=== PATIENT | female | born 1965 | race Caucasian/White ===

== ENCOUNTER 2016-12-07 20:55 | Emergency (ER) | payer BC ==
[2016-12-07] MEDS ORDERED: Al Hydrox/Mg Hydrox/Simet LIQ* 30 ML UDC PO ONE (21:26)
[2016-12-07] MEDS ORDERED: Famotidine IV* 10 MG/ML 2 ML (20 mg) IV SLOW PU ONE (21:26)
[2016-12-07 21:33] LABS: Hematocrit 41 % (35-47); Mean Corpuscular HGB Conc 34 g/dl (31-36); Mean Corpuscular Hemoglobin 32 pg (27-31); Mean Corpuscular Volume 93 fL (80-97); Mean Platelet Volume 8 um3 (7.4-10.4); Red Blood Count 4.36 10^6/ul (4.0-5.4); Red Cell Distribution Width 13 % (10.5-15); White Blood Count 7.1 10^3/ul (3.5-10.8)
[2016-12-07 21:44] LABS: Albumin 4.6 g/dL (3.2-5.2); BUN/Creatinine Ratio 19.3 (8-20); EGFR African American 87.1 (>60); EGFR Non-African American 67.7 (>60); Globulin 2.9 g/dL (2-4); Total Bilirubin 1.1 mg/dL (0.2-1.0); Total Protein 7.5 g/dL (6.4-8.9)
[2016-12-07 21:51] LABS: Potassium 3.1 mmol/L (3.5-5.0)
[2016-12-07 22:05] LABS: Urine Bilirubin Negative (Negative); Urine Glucose Negative (Negative); Urine Nitrite Negative (Negative)
[2016-12-07] MEDS ORDERED: NS 0.9% 1000 ML* 1,000 ML IV ONE (23:10)
[2016-12-07] MEDS ORDERED: Morphine INJ* 4 MG/ML 1 ML CARPUJECT IV ONE (23:10)
[2016-12-08 01:37] VITALS: BP 103/64
--- NOTE | 2016-12-08 07:45 | RAD ---
HISTORY: 4 hours of epigastric pain COMPARISONS: CT abdomen pelvis September 15, 2013 TECHNIQUE: Multiple transverse and longitudinal ultrasound images were obtained of the right upper quadrant. FINDINGS: LIVER: The liver is normal in dimensions and echogenicity. Normal hepatic and portal venous blood flow is duplicated with color flow imaging. There is a appearance of mild intrahepatic biliary duct dilatation.. GALLBLADDER AND EXTRAHEPATIC BILIARY DUCT: There are several echogenic shadowing gallstones in the gallbladder lumen. There is no pericholecystic fluid or gallbladder wall thickening. The common bile duct measures a maximum diameter of 4 mm. PANCREAS: The portions of the pancreas not obscured by bowel gas are normal in appearance. RIGHT KIDNEY: The right kidney is normal in size, morphology and echogenicity. AORTA AND IVC: The visualized portions are normal in appearance and not pathologically dilated. IMPRESSION: 1. CHOLELITHIASIS WITHOUT DEFINITE SIGNS OF BILIARY OBSTRUCTION OR ACUTE INFLAMMATORY CHANGE. 2. QUESTIONABLE MILD DILATATION OF THE INTRAHEPATIC BILIARY DUCTS. PLEASE CORRELATE TO LFTS.
--- NOTE | 2016-12-08 22:11 | ED ---
Ajit Sahni Angela, scribed for Katia Ann MD on 12/07/16 at 2312 . Abdominal Pain/Female - HPI Summary HPI Summary: This pt is a 51 y/o female presenting to [facility] c/o epigastric abd pain that began today after dinner. She states her pain radiates to her back. Pt reports she had a headache yesterday, not today. She notes currently having chills. Pt denies fever, blurry vision, chest pain, SOB, dysuria, hematuria, rashes. Pt is currently being treated for anxiety. PMHx: breast CA (on remission). Pt still has her gallbladder. - History of Current Complaint Chief Complaint: EDAbdPain Stated Complaint: ABD PAIN Time Seen by Provider: 12/07/16 21:19 Hx Obtained From: Patient, Family/Grader Marker - Onset/Duration: Lasting Hours Timing: Hours Pain Intensity: 8 Pain Scale Used: 0-10 Numeric Radiates: Yes Radiates to: Back Aggravating Factor(s): Nothing Alleviating Factor(s): Nothing Associated Signs and Symptoms: Positive: Back Pain. Negative: Fever, Chest Pain , Blood in Stool, Urinary Symptoms, Nausea, Vomiting, Diarrhea Allergies/Adverse Reactions: Allergies Allergy/AdvReac Type Severity Reaction Status Date / Time ENVIRONMENTAL Allergy GI, RASH Uncoded 12/07/16 21:08 PMH/Surg Hx/FS Hx/Imm Hx Endocrine/Hematology History: Denies: Hx Diabetes Cardiovascular History: Denies: Hx Congestive Heart Failure, Hx Hypertension, Other Cardiovascular Problems/Disorders Respiratory History: Denies: Other Respiratory Problems/Disorders History: Reports: Other Problems/Disorders - stress incontinence Musculoskeletal History: Reports: Hx Arthritis - SPINE Denies: Hx Osteoporosis, Other Musculoskeletal History Sensory History: Reports: Hx Hearing Aid - LEFT EAR IMPLANT Neurological History: Denies: Other Neuro Impairments/Disorders Psychiatric History: Reports: Hx Anxiety - ON MEDS - Cancer History Cancer Type, Location and Year: Breast CA Hx Chemotherapy: Yes Hx Radiation Therapy: Yes - Surgical History Surgery Procedure, Year, and Place: stapadectomy in left ear-2012 [place], 2013 Mastectomy August 19, [facility]. LEFT BREAST LIFT Hx Anesthesia Reactions: No Infectious Disease History: No Infectious Disease History: Denies: Traveled Outside the [place] in Last 30 Days - Family History Known Family History: Positive: Cardiac Disease - father, Diabetes - father, Other - Mother: breast CA - Social History Alcohol Use: Weekly Alcohol Amount: 3-4 PER WEEK Substance Use Type: Reports: None Smoking Status (MU): Never Smoked Tobacco Have You Smoked in the Last Year: No Review of Systems Positive: Chills. Negative: Fever Eyes: Negative Negative: Chest Pain Negative: Shortness Of Breath Positive: Abdominal Pain. Negative: Vomiting, Diarrhea, Nausea Negative: dysuria, frequency, hematuria, urgency, other - bloody stools Positive: Other - back pain Skin: Negative Positive: Headache - now resolved All Other Systems Reviewed And Are Negative: Yes Physical Exam Triage Information Reviewed: Yes Vital Signs On Initial Exam: Initial Vitals Temp Pulse Resp BP Pulse Ox 98.2 F 83 16 144/88 100 12/07/16 21:05 12/07/16 21:05 12/07/16 21:05 12/07/16 21:05 12/07/16 21:05 Vital Signs Reviewed: Yes Appearance: Positive: Well-Nourished Skin: Positive: Warm, Skin Color Reflects Adequate Perfusion, Dry Head/Face: Positive: Normal Head/Face Inspection Eyes: Positive: Normal ENT: Positive: Normal ENT inspection Neck: Positive: Supple, Nontender Respiratory/Lung Sounds: Positive: Clear to Auscultation, Breath Sounds Present Cardiovascular: Positive: Normal, RRR Abdomen Description: Positive: Soft, Other: - epigastric tenderness. Negative: CVA Tenderness (R), CVA Tenderness (L) Musculoskeletal: Positive: Normal, Other - no LE swellin. Negative: Edema Left , Edema Right Neurological: Positive: Normal, Sensory/Motor Intact, Alert, Oriented to Person Place, Time Psychiatric: Positive: Normal Diagnostics - Vital Signs Vital Signs Temp Pulse Resp BP Pulse Ox 12/07/16 22:30 81 19 131/72 98 12/07/16 22:29 80 26 139/75 97 12/07/16 22:00 74 15 125/86 99 12/07/16 21:30 78 19 122/78 100 12/07/16 21:22 83 20 128/76 100 12/07/16 21:20 85 20 100 12/07/16 21:05 98.2 F 83 16 144/88 100 - Laboratory Lab Results: Lab Results 12/07/16 12/07/16 12/07/16 Range/Units 21:15 21:15 21:55 WBC 7.1 (3.5-10.8) 10^3/ul RBC 4.36 (4.0-5.4) 10^6/ul Hgb 14.0 (12.0-16.0) g/dl Hct 41 (35-47) % MCV 93 (80-97) fL MCH 32 H (27-31) pg MCHC 34 (31-36) g/dl RDW 13 (10.5-15) % Plt Count 222 (150-450) 10^3/ul MPV 8 (7.4-10.4) um3 Neut % (Auto) 70.5 (38-83) % Lymph % (Auto) 21.9 L (25-47) % [place] % (Auto) 6.4 (1-9) % Eos % (Auto) 0.5 (0-6) % Baso % (Auto) 0.7 (0-2) % Absolute Neuts (auto) 5.0 (1.5-7.7) 10^3/ul Absolute Lymphs (auto) 1.6 (1.0-4.8) 10^3/ul Absolute Monos (auto) 0.5 (0-0.8) 10^3/ul Absolute Eos (auto) 0 (0-0.6) 10^3/ul Absolute Basos (auto) 0.1 (0-0.2) 10^3/ul Absolute Nucleated RBC 0 10^3/ul Nucleated RBC % 0 Sodium 137 (133-145) mmol/L Potassium 3.1 L (3.5-5.0) mmol/L Chloride 99 L (101-111) mmol/L Carbon Dioxide 26 (22-32) mmol/L Anion Gap 12 H (2-11) mmol/L BUN 17 (6-24) mg/dL Creatinine 0.88 (0.51-0.95) mg/dL Est GFR ( Amer) 87.1 (>60) Est GFR (Non-Af Amer) 67.7 (>60) BUN/Creatinine Ratio 19.3 (8-20) Glucose 93 (70-100) mg/dL Calcium 10.0 (8.6-10.3) mg/dL Total Bilirubin 1.10 H (0.2-1.0) mg/dL AST 191 H (13-39) U/L ALT 81 H (7-52) U/L Alkaline Phosphatase 110 H (34-104) U/L C-React Prot High Sens 2.83 mg/L Total Protein 7.5 (6.4-8.9) g/dL Albumin 4.6 (3.2-5.2) g/dL Globulin 2.9 (2-4) g/dL Albumin/Globulin Ratio 1.6 (1-3) Urine Color Straw Urine Appearance Clear Urine pH 9.0 (5-9) Ur Specific [place] 1.005 L (1.010-1.030) Urine Protein Negative (Negative) Urine Ketones 1+ H (Negative) Urine Blood Negative (Negative) Urine Nitrate Negative (Negative) Urine Bilirubin Negative (Negative) Urine Urobilinogen Negative (Negative) Ur Leukocyte Esterase Negative (Negative) Urine Glucose Negative (Negative) Result Diagrams: 12/07/16 21:15 12/07/16 21:15 Lab Statement: Any lab studies that have been ordered have been reviewed, and results considered in the medical decision making process. - Ultrasound No standard instances Ultrasound Interpretation: Positive (See Comments) - Gallbladder US IMPRESSION: Gallstones without secondary findings of cholecystitis. Mild intrahepatic biliary duct dilation. Consider followup with CT or MRI. ED physician has reviewed this radiology report and agrees. Ultrasound Interpretation Completed By: Radiologist Re-Evaluation - Re-Evaluation First Eval Re-Evaluation Time: 01:02 Comment: I reviewed the gallbladder US with the pt. Pt deferred a work excuse. Abdominal Pain Fem Course/Dx - Course Course Of Treatment: This pt is a 51 y/o female presenting to [facility] c/o epigastric abd pain that began today after dinner. In the ED course, pt was given maalox, pepcid, IV fluids, and Pepcid. Gallbladder US shows gallstones without secondary findings of cholecystitis. Mild intrahepatic biliary duct dilation. Pt will be discharged and is advised to follow up with a general surgeon. Pt deferred a work note. - Diagnoses Provider Diagnoses: Gallstones Discharge - Discharge Plan Condition: Stable Disposition: HOME Patient Education Materials: Gallstones (ED), Abdominal Pain (ED) Referrals: Ryley Tierney MD [Medical Doctor] - 1 Week (Follow up for your gallstones) Kendrick Yu MD [Primary Care Provider] - Additional Instructions: return if worse or any new symptoms. Take all medications as previously instructed. The documentation as recorded by the Ajit ricks Angela accurately reflects the service I personally performed and the decisions made by , Katia Ann MD.
== END 2016-12-08 01:39 | disposition home or self-care (01) ==
LOC: ED 20:55
DX: K80.80 Other cholelithiasis without obstruction (principal); R10.13 Epigastric pain; R51 Headache; R68.83 Chills (without fever); M54.9 Dorsalgia, unspecified
CPT/HCPCS: 36415; 76705; 80053; 81003; 85025; 86141; 96374; 96375; 99284; A9270-GY; J2270

== ENCOUNTER 2016-12-22 11:42 | Day surgery (SDC) | payer BC ==
[~2016-12-22 11:42] MED LIST: Buffered Lidocaine 0.9% SYRIN* 5 ML/SYR SYRINGE INTRADERM ONE; Heparin VIAL(*) 5000 UNITS/ML VIAL (FIVE THOUSAND) ONE; celeCOXIB CAP* 100 MG ONE; celeCOXIB CAP* 200 MG PO ONE
[2016-12-22] MEDS ORDERED: ceFAZolin 2 GM PREMIX (*) 2 GM/50 ML BAG IVPB ONE (11:43)
[2016-12-22] MEDS ORDERED: Buffered Lidocaine 0.9% SYRIN* 5 ML/SYR SYRINGE ONE (11:43)
[2016-12-22] MEDS ORDERED: Bupivacaine 0.25% SDV* 30 ML ONE (11:53)
[2016-12-22] MEDS ORDERED: Midazolam* 1 MG/ML 2 ML VIAL (2 MG) ONE (12:31)
[2016-12-22] MEDS ORDERED: fentaNYL* 50 MCG/ML 2 ML VIAL (100 MCG VIAL) ONE (12:31)
[2016-12-22] MEDS ORDERED: Atracurium* 10 MG/ML 10 ML VIAL ONE (12:33)
[2016-12-22] MEDS ORDERED: Propofol* 10 MG/ML 20 ML BTL IV PUSH ONE (12:33)
[2016-12-22] MEDS ORDERED: Dexamethasone IV* 4 MG/ML 1 ML (4 MG) ONE (12:33)
[2016-12-22] MEDS ORDERED: Lidocaine 2% PF * 5 ML VIAL ONE (12:33)
[2016-12-22] MEDS ORDERED: Ondansetron INJ* 2 MG/ML VIAL ONE (13:05)
[2016-12-22] MEDS ORDERED: DiMENhydriNATE IV* 50 MG/ML VIAL IV PUSH PRN (13:06)
[2016-12-22] MEDS ORDERED: fentaNYL* 50 MCG/ML 2 ML VIAL (100 MCG VIAL) IV PRN (13:06)
[2016-12-22] MEDS ORDERED: oxyCODONE/Acetamin 5/325 MG* TAB PO PRN ×2 (13:06→13:55)
[2016-12-22] MEDS ORDERED: Atropine 1MG/ML INJ* 1 ML VIAL ONE (13:23)
[2016-12-22] MEDS ORDERED: Edrophonium Chloride* 10 MG/ML 15 ML VIAL ONE (13:23)
[2016-12-22] MEDS ORDERED: DiMENhydriNATE IV* 50 MG/ML VIAL ONE (14:22)
[2016-12-22] MEDS ORDERED: oxyCODONE/Acetamin 5/325 MG* TAB ONE (14:54)
[2016-12-22 16:29] VITALS: BP 119/75
== END 2016-12-22 15:45 | disposition home or self-care (01) ==
LOC: OR 11:42
PROVIDERS: ATTEND Surgery
DX: K80.10 Calculus of gallbladder with chronic cholecystitis without obstruction (principal); F41.9 Anxiety disorder, unspecified; Z85.3 Personal history of malignant neoplasm of breast
CPT/HCPCS: 88304; A9270-GY; C1776; J0461; J0690; J1100; J1240; J1644; J2250; J2405; J2704; J3010